=== PATIENT | male | born 1950 | race African-American/Black ===

== ENCOUNTER 2018-12-06 05:35 | Observation (INO) ==
[2018-12-06] MEDS ORDERED: ONDANSETRON 4 MG/2 ML VIAL IV STA (05:56)
[2018-12-06] MEDS ORDERED: METOPROLOL TARTRATE 5 MG/5 ML VIAL IV STA (05:56)
[2018-12-06] MEDS ORDERED: MORPHINE 4 MG/1 ML VIAL IV STA (05:56)
[2018-12-06] MEDS ORDERED: ONDANSETRON 4 MG/2 ML VIAL ONE (05:56)
[2018-12-06] MEDS ORDERED: NITROGLYCERIN 2% OINT 1 INCH/GM PACK TOP STA (05:56)
[2018-12-06] MEDS ORDERED: ASPIRIN 325 MG TABLET PO STA (05:56)
[2018-12-06] MEDS ORDERED: METOPROLOL TARTRATE 5 MG/5 ML VIAL IV ONE (05:57)
[2018-12-06] MEDS ORDERED: MORPHINE 4 MG/1 ML VIAL ONE (05:57)
[2018-12-06 06:21] LABS: Basophils % 0.3 % (0.0-0.8); Eosinophils # 0.4 10*3/uL (0.0-0.87); Eosinophils % 6.2 % (0.00-10.9); Hematocrit 39.7 VOL% (42.0-52.0); Hemoglobin 13.3 GM/DL (14.0-18.0); Immature Granulocytes % 0.3 %; Immature Granulocytes Absolute 0.02 #; Lymphocytes # 2.1 10*3/uL (1.4-4.0); Lymphocytes % 33.2 % (21.2-54.2); Mean Corpuscular HGB Conc 33.5 GM/DL (32-36); Mean Corpuscular Hemoglobin 29 PG (27-34); Mean Corpuscular Volume 86.9 FL (87-102); Mean Platelet Volume 10.1 FL (9.6-12.0); Monocytes # 0.5 10*3/uL (0.11-0.8); Monocytes % 8.4 % (1.7-12.7); Neutrophils # 3.3 10*3/uL (1.4-7.4); Neutrophils % 51.6 % (38.7-73.9); Platelet Count 232 T/CUMM (130-400); Red Blood Count 4.57 MC/CUMM (3.8-5.5); Red Cell Distribution Width 13.2 % (9.3-17.3); White Blood Count 6.4 T/CUMM (4-12)
[2018-12-06 06:29] LABS: INR 1.1; PT Patient Result 11.4 SECS; Partial Thromboplastin Time 25.8 SECS (0-40)
[2018-12-06 06:44] LABS: Albumin 3.5 G/DL (3.4-5.0); Bilirubin,Total 1.2 MG/DL (0.2-1.0); Calcium 8.5 MG/DL (8.5-10.1); Osmolality,Calculated 276.5 MOS/KG (273-304); Potassium 3.8 MMOL/L (3.5-5.1); Total Protein 7.4 G/DL (6.4-8.3)
[2018-12-06] MEDS ORDERED: MORPHINE 4 MG/1 ML VIAL IV PRN (10:02)
[2018-12-06] MEDS ORDERED: ONDANSETRON 4 MG/2 ML VIAL IV PRN (10:02)
[2018-12-06] MEDS ORDERED: tiZANidine 4 MG TABLET PO PRN (10:04)
[2018-12-06] MEDS ORDERED: ALBUTEROL 2.5 MG/3 ML NEB RESP TX PRN (10:04)
[2018-12-06] MEDS ORDERED: SODIUM CHLORIDE 0.9% 1,000 ML IV SCH (10:30)
[2018-12-06 10:47] LABS: Risk Ratio 3.56
[2018-12-06] MEDS: ENOXAPARIN 40 MG/0.4 ML SYRINGE SUBCUT SCH (13:08)
[2018-12-06] MEDS: GABAPENTIN 100 MG CAPSULE PO SCH ×2 (15:46→21:17)
[2018-12-06] MEDS: ACETAMINOPHEN 325 MG TABLET PO SCH ×2 (15:46→21:17)
[2018-12-06 17:17] LABS: Apearance,Urine Slightly Hazy (Clear); Bacteria,Urine Occasional /HPF (Few); Bilirubin,Urine Negative (Negative); Blood, Urine Small mg/dL (Negative); Glucose,Urine (UA) Negative (Negative); Hyaline Casts,Urine 1 /LPF (0-3); Ketones,Urine Negative (Negative); Mucus,Urine Moderate /LPF (Occasional); Nitrite,Urine Negative (Negative); Protein,Urine Negative; RBC,Urine 3 /HPF (0-4); Urine Color Yellow (Yellow); Urine Specific Gravity 1.021 (1.001-1.035); Urine Urobilinogen < 2.0 EU/DL (0.2-1.0); WBC,Urine 1 /HPF (0-6)
[2018-12-06] MEDS ORDERED: traZODone 50 MG TABLET PO SCH (21:00)
[2018-12-07 04:29] LABS: Basophils % 0.3 % (0.0-0.8); Eosinophils # 0.5 10*3/uL (0.0-0.87); Eosinophils % 6.7 % (0.00-10.9); Hematocrit 39.8 VOL% (42.0-52.0); Hemoglobin 12.9 GM/DL (14.0-18.0); Immature Granulocytes % 0.4 %; Immature Granulocytes Absolute 0.03 #; Lymphocytes # 2.2 10*3/uL (1.4-4.0); Lymphocytes % 32.4 % (21.2-54.2); Mean Corpuscular HGB Conc 32.4 GM/DL (32-36); Mean Corpuscular Hemoglobin 29 PG (27-34); Mean Corpuscular Volume 88.2 FL (87-102); Mean Platelet Volume 10.2 FL (9.6-12.0); Monocytes # 0.6 10*3/uL (0.11-0.8); Monocytes % 8.2 % (1.7-12.7); Neutrophils # 3.5 10*3/uL (1.4-7.4); Platelet Count 211 T/CUMM (130-400); Red Blood Count 4.51 MC/CUMM (3.8-5.5); Red Cell Distribution Width 13.2 % (9.3-17.3); White Blood Count 6.7 T/CUMM (4-12)
[2018-12-07 04:53] LABS: Calcium 8.5 MG/DL (8.5-10.1); Osmolality,Calculated 277.5 MOS/KG (273-304)
[2018-12-07 05:58] LABS: Hepatitis A Ab IgM Quant 0.13 Index; Hepatitis A Ab IgM Result Negative (Negative); Hepatitis B Core IgM Quant 0.12 Index; Hepatitis B Core IgM Result Negative (Negative); Hepatitis B Surface Ag Quant < 0.10 Index; Hepatitis B Surface Ag Result Negative (Negative); Hepatitis C Virus Ab Quant 0.07 Index; Hepatitis C Virus Ab Result Negative (Negative)
[2018-12-07] MEDS: GABAPENTIN 100 MG CAPSULE PO SCH (08:58)
[2018-12-07] MEDS: ACETAMINOPHEN 325 MG TABLET PO SCH (08:58)
[2018-12-07] MEDS: ENOXAPARIN 40 MG/0.4 ML SYRINGE SUBCUT SCH ×2 (08:59→10:46)
[2018-12-07] MEDS ORDERED: PANTOPRAZOLE 40 MG TABLET PO SCH (09:00)
[2018-12-07] MEDS ORDERED: LISINOPRIL 20 MG TABLET PO SCH (09:00)
[2018-12-07] MEDS ORDERED: COENZYME Q10 100 MG CAPSULE PO SCH (09:00)
[2018-12-07] MEDS ORDERED: ASPIRIN EC 81 MG TABLET PO SCH (09:00)
[2018-12-07 12:13] VITALS: BP 141/73
== END 2018-12-07 12:07 | disposition home or self-care (01) ==
LOC: N.EDINP 05:35 → N.ED 05:35 → N.TELEN 12:14
PROVIDERS: ADMIT Internal Medicine; ATTEND Internal Medicine

== ENCOUNTER 2021-11-16 23:45 | Observation (INO) ==
[2021-11-17 00:39] LABS: Basophils % 0.4 % (0.0-0.8); Eosinophils # 0.7 10*3/uL (0.0-0.87); Eosinophils % 9.4 % (0.00-10.9); Hematocrit 39.7 VOL% (42.0-52.0); Hemoglobin 13.2 GM/DL (14.0-18.0); Immature Granulocytes % 0.4 %; Immature Granulocytes Absolute 0.03 #; Lymphocytes # 2.4 10*3/uL (1.4-4.0); Lymphocytes % 33.1 % (21.2-54.2); Mean Corpuscular HGB Conc 33.2 GM/DL (32-36); Mean Corpuscular Volume 87.3 FL (87-102); Mean Platelet Volume 9.6 FL (9.6-12.0); Monocytes % 8.2 % (1.7-12.7); Neutrophils % 48.5 % (38.7-73.9); Platelet Count 206 T/CUMM (130-400); Red Blood Count 4.55 MC/CUMM (3.8-5.5); White Blood Count 7.1 T/CUMM (4-12)
[2021-11-17 01:13] LABS: Albumin 3.3 G/DL (3.4-5.0); Bilirubin,Total 0.4 MG/DL (0.20-1.00); Calcium 8.5 MG/DL (8.5-10.1); Osmolality,Calculated 280.4 MOS/KG (273-304); Potassium 3.7 MMOL/L (3.5-5.1); Total Protein 7.4 G/DL (6.4-8.2)
[2021-11-17 02:26] LABS: PT Patient Result 11.3 SECS (10.5-12.0)
[2021-11-17] MEDS ORDERED: ASPIRIN CHEW 81 MG TABLET PO STA (07:23)
[2021-11-17] MEDS ORDERED: NITROGLYCERIN SL 0.4 MG TABLET SL STA (07:24)
[2021-11-17] MEDS ORDERED: DEXTROSE 50% 25 GM/50 ML SYRINGE IV PRN (08:13)
[2021-11-17] MEDS ORDERED: DOCUSATE SODIUM 100 MG CAPSULE PO PRN (08:13)
[2021-11-17] MEDS ORDERED: GLUCAGON 1 MG VIAL IM PRN (08:13)
[2021-11-17] MEDS ORDERED: hydrALAZINE 20 MG/1 ML VIAL IV PRN (08:13)
[2021-11-17] MEDS ORDERED: ALUMINUM/MAGNES/SIMETH MAX STR 30 ML UDCUP PO PRN (08:13)
[2021-11-17] MEDS ORDERED: ONDANSETRON 4 MG/2 ML VIAL IV PRN (08:13)
[2021-11-17] MEDS: ENOXAPARIN 100 MG/ML SYRINGE SUBCUT STA ×2 (08:14→08:26)
[2021-11-17] MEDS: ENOXAPARIN 30 MG/0.3 ML SYRINGE SUBCUT STA ×2 (08:14→08:26)
[2021-11-17 09:14] LABS: Thyroid Stimulating Hormone 0.73 uIU/ml (0.358-3.74)
[2021-11-17] MEDS: PANTOPRAZOLE 40 MG TABLET PO SCH (09:46)
[2021-11-17] MEDS: lisinopriL 20 MG TABLET PO SCH (10:57)
[2021-11-17] MEDS: ACETAMINOPHEN 325 MG TABLET PO PRN ×2 (10:57→17:32)
[2021-11-17] MEDS ORDERED: carvediloL 3.125 MG TABLET PO SCH (17:00)
[2021-11-17] MEDS ORDERED: traMADol 50 MG TABLET PO PRN (19:04)
[2021-11-17] MEDS ORDERED: oxyCODONE/ACETAMINOPHEN 5-325 MG TABLET PO PRN (19:04)
[2021-11-17] MEDS ORDERED: ALBUTEROL 2.5 MG/3 ML NEB RESP TX PRN (19:14)
[2021-11-17] MEDS: traZODone 50 MG TABLET PO PRN (20:57)
[2021-11-17] MEDS: NABUMETONE 500 MG TABLET PO SCH (20:57)
[2021-11-17] MEDS: THEOPHYLLINE ER 300 MG TABLET PO SCH (20:57)
[2021-11-17] MEDS: GABAPENTIN 300 MG CAPSULE PO SCH (20:57)
[2021-11-18 05:28] LABS: Basophils % 0.4 % (0.0-0.8); Eosinophils # 0.7 10*3/uL (0.0-0.87); Eosinophils % 9.8 % (0.00-10.9); Hematocrit 39.7 VOL% (42.0-52.0); Hemoglobin 13.1 GM/DL (14.0-18.0); Immature Granulocytes % 0.3 %; Immature Granulocytes Absolute 0.02 #; Lymphocytes # 2.2 10*3/uL (1.4-4.0); Lymphocytes % 32.1 % (21.2-54.2); Mean Corpuscular Volume 88.4 FL (87-102); Mean Platelet Volume 9.9 FL (9.6-12.0); Monocytes % 8.6 % (1.7-12.7); Neutrophils % 48.8 % (38.7-73.9); Platelet Count 213 T/CUMM (130-400); Red Blood Count 4.49 MC/CUMM (3.8-5.5); Red Cell Distribution Width 13.1 % (9.3-17.3); White Blood Count 6.8 T/CUMM (4-12)
[2021-11-18 05:52] LABS: Albumin 3.1 G/DL (3.4-5.0); Bilirubin,Total 0.4 MG/DL (0.20-1.00); Calcium 8.8 MG/DL (8.5-10.1); Osmolality,Calculated 280.4 MOS/KG (273-304); Potassium 3.8 MMOL/L (3.5-5.1); Risk Ratio 4.41; Total Protein 7.1 G/DL (6.4-8.2); VLDL Cholesterol 30.8 MG/DL
[2021-11-18 08:29] LABS: Calcium 8.3 MG/DL (8.5-10.1); Osmolality,Calculated 281.3 MOS/KG (273-304)
[2021-11-18] MEDS: lisinopriL 20 MG TABLET PO SCH (09:59)
[2021-11-18] MEDS: MONTELUKAST 10 MG TABLET PO SCH (09:59)
[2021-11-18] MEDS: PANTOPRAZOLE 40 MG TABLET PO SCH (09:59)
[2021-11-18] MEDS: THEOPHYLLINE ER 300 MG TABLET PO SCH ×2 (10:00→21:35)
[2021-11-18] MEDS: NABUMETONE 500 MG TABLET PO SCH ×2 (10:00→21:36)
[2021-11-18] MEDS: ENOXAPARIN 40 MG/0.4 ML SYRINGE SUBCUT SCH (10:00)
[2021-11-18] MEDS: GABAPENTIN 300 MG CAPSULE PO SCH ×2 (10:00→21:37)
[2021-11-18] MEDS: ASPIRIN EC 81 MG TABLET PO SCH (10:00)
[2021-11-18] MEDS ORDERED: ASPIRIN CHEW 81 MG TABLET PO ONE (13:53)
[2021-11-18] MEDS ORDERED: DIAZEPAM 5 MG TABLET PO ONE (13:56)
[2021-11-18] MEDS: SODIUM CHLORIDE 0.45% 1,000 ML IV SCH (15:11)
[2021-11-18] MEDS: traZODone 50 MG TABLET PO PRN (22:16)
[2021-11-19 06:23] LABS: Basophils % 0.6 % (0.0-0.8); Eosinophils # 0.5 10*3/uL (0.0-0.87); Eosinophils % 6.4 % (0.00-10.9); Hematocrit 39.5 VOL% (42.0-52.0); Hemoglobin 12.8 GM/DL (14.0-18.0); Immature Granulocytes % 0.4 %; Immature Granulocytes Absolute 0.03 #; Lymphocytes % 29.2 % (21.2-54.2); Mean Corpuscular HGB Conc 32.4 GM/DL (32-36); Mean Corpuscular Volume 87.8 FL (87-102); Mean Platelet Volume 9.6 FL (9.6-12.0); Monocytes % 9.2 % (1.7-12.7); Neutrophils % 54.2 % (38.7-73.9); Platelet Count 208 T/CUMM (130-400); Red Cell Distribution Width 13.1 % (9.3-17.3)
[2021-11-19 06:41] LABS: Calcium 8.6 MG/DL (8.5-10.1); Osmolality,Calculated 273.7 MOS/KG (273-304); Potassium 3.7 MMOL/L (3.5-5.1)
[2021-11-19] MEDS ORDERED: LIDOCAINE 1% 20 ML VIAL ONE (07:12)
[2021-11-19] MEDS ORDERED: DIAZEPAM 5 MG TABLET PO ONE (07:19)
[2021-11-19] MEDS: THEOPHYLLINE ER 300 MG TABLET PO SCH (07:28)
[2021-11-19] MEDS: SODIUM CHLORIDE 0.45% 1,000 ML IV SCH ×2 (07:28→09:57)
[2021-11-19] MEDS: ASPIRIN EC 81 MG TABLET PO SCH ×2 (07:28→10:53)
[2021-11-19] MEDS: lisinopriL 20 MG TABLET PO SCH ×2 (07:28→10:53)
[2021-11-19] MEDS: ENOXAPARIN 40 MG/0.4 ML SYRINGE SUBCUT SCH ×2 (07:29→10:53)
[2021-11-19] MEDS: PANTOPRAZOLE 40 MG TABLET PO SCH ×2 (07:29→10:52)
[2021-11-19] MEDS ORDERED: MIDAZOLAM 2 MG/2 ML VIAL ONE (08:07)
[2021-11-19] MEDS ORDERED: fentaNYL 100 MCG/2 ML VIAL ONE (08:08)
[2021-11-19] MEDS ORDERED: HEPARIN 5,000 UNIT/1 ML VIAL ONE (08:24)
[2021-11-19] MEDS ORDERED: amLODIPine 5 MG TABLET PO SCH (09:31)
[2021-11-19] MEDS: GABAPENTIN 300 MG CAPSULE PO SCH (09:52)
[2021-11-19] MEDS: MONTELUKAST 10 MG TABLET PO SCH (09:52)
[2021-11-19] MEDS: NABUMETONE 500 MG TABLET PO SCH (09:52)
[2021-11-19 15:19] VITALS: BP 137/77
[2021-11-19] MEDS ORDERED: ROSUVASTATIN 10 MG TABLET PO SCH (21:00)
[2021-11-20] MEDS ORDERED: ASPIRIN CHEW 81 MG TABLET PO SCH (09:00)
[2021-11-20] MEDS ORDERED: ENOXAPARIN 40 MG/0.4 ML SYRINGE SUBCUT SCH (09:00)
[2021-11-20] MEDS ORDERED: lisinopriL 10 MG TABLET PO SCH (09:00)
== END 2021-11-19 18:20 | disposition home or self-care (01) ==
LOC: N.ED 23:45 → N.EDINP 23:45 → SUATTDRO 11-17 08:13 → N.TELEN 11-17 14:43
PROVIDERS: ADMIT Internal Medicine; ATTEND Internal Medicine Geriatric Medicine
PROC: CLCCHCL (ICD-10-PCS; 2021-11-19 10:45)